=== PATIENT | male | born 1990 ===

== ENCOUNTER 2016-11-23 11:54 | Emergency (ER) | payer OTHER ==
[2016-11-23 12:02] VITALS: BP 127/57; PULSE 62; RESP 16; TEMP 97.6; O2SAT 96
--- NOTE | 2016-11-23 13:09 | ED PDOC ---
HPI: Abdomen Time Seen by Provider: 11/23/16 12:08 Chief Complaint (Nursing): Abdominal Pain History Per: Patient (presents for evaluation of intermittent jolting left testicular pain since yesterday morning. Pain occurs randomly without precipitating event. He recalls having worked out with weights the day before onset of symptoms. Otherwise there is no trauma, fever, chills, urinary complaints, discharge, swelling or redness. The pain is intermittent and recurrent since yesterday morning.) History/Exam Limitations: no limitations Outside of [place] travel?: No Current Symptoms Are (Timing): Intermittent Episodes Severity: Moderate Past Medical History Reviewed: Historical Data, Nursing Documentation, Vital Signs Vital Signs: Last Vital Signs Temp 97.6 F 11/23/16 11:59 Pulse 62 11/23/16 11:59 Resp 16 11/23/16 11:59 BP 127/57 L 11/23/16 11:59 Pulse Ox 96 11/23/16 13:11 - Medical History PMH: No Chronic Diseases - Surgical History Surgical History: No Surg Hx - Family History Family History: States: No Known Family Hx - Allergies Allergies/Adverse Reactions: Allergies Allergy/AdvReac Type Severity Reaction Status Date / Time No Known Allergies Allergy Verified 11/23/16 12:04 Review of Systems ROS Statement: Except As Marked, All Systems Reviewed And Found Negative Constitutional: Negative for: Fever, Chills Cardiovascular: Negative for: Chest Pain Respiratory: Negative for: Cough, Shortness of Breath Genitourinary Male: Negative for: Dysuria, Penile Discharge, Scrotal Pain, Penile Pain Physical Exam - Reviewed Nursing Documentation Reviewed: Yes Vital Signs Reviewed: Yes - Physical Exam Appears: Positive for: Well, Non-toxic, No Acute Distress Head Exam: Positive for: ATRAUMATIC, NORMAL INSPECTION, NORMOCEPHALIC Skin: Positive for: Normal Color, Warm, DRY Eye Exam: Positive for: Normal appearance ENT: Positive for: Normal ENT Inspection Neck: Positive for: Normal Gastrointestinal/Abdominal: Positive for: Normal Exam, Bowel Sounds, Soft Male Genital Exam: Positive for: normal genitalia. Negative for: no hernia, bleeding, epididymal tenderness, erythema, hernia mass, inguinal tenderness, lesions, scrotum tenderness (R), scrotum tenderness (L), testicular tenderness ( R), testicular tenderness (L), urethral discharge Back: Positive for: Normal Inspection Extremity: Positive for: Normal ROM Neurologic/Psych: Positive for: Alert, Oriented - Laboratory Results Urine dip results: Negative for: Leukocyte Esterase, Blood, Nitrate, Ketones, Glucose, Bilirubin, Protein - ECG O2 Sat by Pulse Oximetry: 96 Disposition - Clinical Impression Clinical Impression: Testicular pain, left, Hydrocele in adult - Patient ED Disposition Is Patient to be Admitted: No Doctor Will See Patient In The: Office Counseled Patient/Family Regarding: Diagnosis, Need For Followup - Disposition Referrals: Antonio Heredia MD [Medical Doctor] - [place] [facility] [Outside] Disposition: Routine/Home Disposition Time: 14:02 Condition: STABLE Instructions: Testicle Pain (ED), Hydrocele (ED) Forms: [facility] (Indonesian) - POA Present On Arrival: None
--- NOTE | 2016-11-23 13:47 | US ---
HISTORY: intermittent left testicular pain for over 24 hrs TECHNIQUE: Realtime sonography through the scrotum with color and doppler flow. COMPARISON: None Available. FINDINGS: RIGHT TESTICLE: Measures 2 x 3.1 x 4.6 cm. Normal echotexture and flow. Testicular microlithiasis RIGHT EPIDIDYMIS: Epididymal head measures 1.2 x 0.7 cm. Grossly unremarkable appearance with normal flow. LEFT TESTICLE: Measures 2.1 x 2.9 x 4.4 cm. Normal echotexture and flow. LEFT EPIDIDYMIS: Epididymal head measures 0.9 x 8 0.8 x 1.1 cm cm. Grossly unremarkable appearance with normal flow.Incidental finding(s): Testicular microlithiasis HYDROCELE: Small bilateral hydroceles left larger than right. The left hydrocele contains debris. VARICOCELE: None. OTHER FINDINGS: None. IMPRESSION: Negative study for epididymitis, orchitis or torsion. Small bilateral hydroceles left larger than right
== END 2016-11-23 14:13 | disposition home or self-care (01) ==
LOC: H.ER 11:54
DX: N43.3 Hydrocele, unspecified (principal)

== ENCOUNTER 2017-09-04 16:02 | Emergency (ER) | payer BC, OTHER ==
[2017-09-04 16:25] VITALS: O2SAT 98
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
[2017-09-04 17:52] VITALS: BP 122/81; PULSE 69; RESP 16; TEMP 98.2
== END 2017-09-04 17:51 | disposition home or self-care (01) ==
LOC: H.ER 16:02
DX: S02.2XXA Fracture of nasal bones, initial encounter for closed fracture (principal); Y04.0XXA Assault by unarmed brawl or fight, initial encounter; Y92.89 Other specified places as the place of occurrence of the external cause